=== PATIENT | female | born 1960 | race Caucasian/White ===

== ENCOUNTER 2016-09-11 17:53 | Observation (INO) | payer OTHER ==
[~2016-09-11] VITALS: Ht 165.1 cm; Wt 129.3 kg
--- NOTE | 2016-09-11 19:45 | DIAGNOSTIC IMAGING REPORT ---
PROCEDURE: XR FEMUR - LEFT INDICATION: TRAUMA/INJURY TECHNIQUE: AP and lateral views. COMPARISON: Compare radiographs of the left knee and 03/24/2015. FINDINGS: Mean suggest probable nondisplaced fracture of the intertrochanteric region, left femur. The mid and distal left femur are normal. Moderate degenerative changes of the left knee (partially visualized). IMPRESSION: 1. Findings suggest probable fracture of the intertrochanteric proximal left femur.
--- NOTE | 2016-09-11 19:46 | DIAGNOSTIC IMAGING REPORT ---
PROCEDURE: XR HIP 2VW W W/O AP PELVIS-LT INDICATION: TRAUMA/INJURY TECHNIQUE: AP view of the pelvis and hips with lateral view of the left hip. COMPARISON: None. FINDINGS: LEFT HIP: Findings suggest probable fracture of the intertrochanteric of proximal left femur. There mild degenerate changes of the left hip joint. PELVIS: Osseous pelvis is normal. IMPRESSION: 1. Findings suggest probable fracture of the proximal left femur (intertrochanteric ). 2. Negative pelvis.
--- NOTE | 2016-09-11 19:56 | DIAGNOSTIC IMAGING REPORT ---
PROCEDURE: CT LOWER EXT W/O CONTRAST-LEFT CLINICAL INDICATION: TRAUMA/INJURY TECHNIQUE: Thin-cut noncontrast axial images of the pelvis and left hip with sagittal and coronal reformations. COMPARISON: Comparison made radiographs of the left hip and left femur earlier today (09/11/2016). FINDINGS: There is a comminuted nondisplaced fracture through the greater trochanter of the proximal left femur with fracture lines extending towards the lateral femoral neck. There is a dystrophic calcification or old avulsion fracture of the lesser trochanter. There are mild degenerative changes of bilateral hip joints and sacroiliac joints. There are moderate degenerative changes of the lower lumbar spine. Osseous pelvis is otherwise normal, and there is no evidence of pelvic fracture. IMPRESSION: 1. There is a nondisplaced comminuted fracture of the greater trochanter, left femur, with fracture lines extending toward the femoral neck. While this fracture does not extend to the medial cortex, the patient may be at risk for intertrochanteric extension. 2. Mild degenerative changes of the hip joints and sacroiliac joints. 3. Findings discussed with DOUG Kline. All CT scans at this facility use dose modulation, iterative reconstruction, and/or weight-based dosing when appropriate to reduce radiation dose to as low as reasonably achievable.
--- NOTE | 2016-09-11 20:03 | ED NURSING NOTES ---
Clinical Report - Nurses [facility] [address] [place] [address] 09/11/2016 17:53 Patient: MAXIMILIANO FLOOD TRIAGE Triage time 17:59. Acuity: LEVEL 4. Chief Complaint: Location of symptoms- left hip. 18:11 09/11/16. Alert. No acute distress. SEPSIS SCREEN: Sepsis Screen. Negative (no infection suspected/documented). KYRIE COMA SCORE: [place] Coma Scale: 15- eyes open spontaneously (4); best verbal response- oriented x 4 (5); best motor response- obeys commands (6). --18:11 Nilam Bernardo R.N. 17:58 09/11/16. BP: 147/69. HR: 82. RR: 22. O2 saturation: 99%. Temp: 98.9 F. Pain level now: 04/02. --18:11 Nilam Bernardo R.N. Weight: 136 kg estimated. Height/Length: 64 inches Estimated. BMI: 51.5. --22:00 Josh Botello R.N. Medications Glipizide Oral. --18:05 Nilam Bernardo R.N. Gabapentin Oral. --18:05 Nilam Bernardo R.N. MetFORMIN HCl Oral. --18:09 Nilam Bernardo R.N. Metoprolol Succinate ER Oral. --18:09 Nilam Bernardo R.N. Lovastatin Oral. --18:10 Nilam Bernardo R.N. Allergies Codeine. --19:03 Nilam Bernardo R.N. History Arrived by private vehicle. Historian: patient and family. Accompanied by family. Primary physician (Dr Davies). Injury occurred. This occurred just prior to arrival. Occurred (daughter's wedding venue). Provoking / relieving factors: worsened by movement and standing. Treatment WIRELESS FIELD TECHNICIAN: None. PAST MEDICAL HX: Immunizations: up-to-date. Denies current . SOCIAL HX: Never smoker. No alcohol use or drug use. FALL RISK ASSESSMENT: Fall risk assessment completed. No fall risk identified. NUTRITIONAL RISK ASSESSMENT: The nutritional risk assessment revealed no deficiencies. FUNCTIONAL ASSESSMENT: Functional assessment: no impairments noted. LEARNING NEEDS ASSESSMENT: The learning needs assessment revealed no barriers. SKIN INTEGRITY ASSESSMENT: Skin integrity risk assessment completed. No skin integrity risk identified. --18:11 Nilam Bernardo R.N. PROBLEMS: Diabetes Mellitus. Knee pain. Ankle pain. --18:05 Nilam Bernardo R.N. Hypertension. --18:11 Nilam Bernardo R.N. ADDITIONAL SURGERIES: L ankle surgery. --18:11 Nilam Bernardo R.N. Interventions ID band on patient. To treatment room. --18:11 Nilam Bernardo R.N. PHYSICAL ASSESSMENT 18:12 09/11/16. GENERAL / NEURO / PSYCH: Oriented X 4. Alert. Appears in pain. EXTREMITIES: Left hip: of the anterior and lateral aspect of the hip. SKIN: Skin intact. Skin is warm and dry. --18:12 Nilam Bernardo R.N. NURSING PROGRESS NOTES 18:13 09/11/16. Two patient identifiers checked. Call light placed in reach. Side rails up x 2. Bed placed in lowest position. Brakes of bed on. Patient informed about plan of care. --18:13 Nilam Bernardo R.N. 18:50 09/11/2016 Dilaudid (HYDROmorphone HCl PF) IM 2 mg given. Given in the right anterior lateral thigh. Allergies verified, confirmed 5 rights and sedative warning given to the patient. --18:50 Nilam Bernardo R.N. 18:50 09/11/2016 Phenergan (Promethazine HCl) IM 12.5 mg given. Given in the right anterior lateral thigh. Allergies verified, confirmed 5 rights and sedative warning given to the patient. --18:50 Nilam Bernardo R.N. 18:54 09/11/16. Patient and family informed about reason for wait and about plan of care. --18:54 Nilam Bernardo R.N. 19:00 09/11/16. Care transferred and report given (to [facility]). --19:00 Az, Nilam, R.N. ( Report received from Nilam at 1900.). --19:39 Josh Botello R.N. 20:17 09/11/2016 Dilaudid IV 1 mg (HIGH ALERT MEDICATION, NOW) was refused by patient because pain is gone. Josh Botlelo --20:17 Josh Botello R.N. ( Admitting physician present with patient, patient does not want pain medication at this time. Admitting physician states that if the patient can walk with a walker, she can go home instead of being admitted. Patient does not want the IV placed until she knows for sure if she is staying or going home.). --20:21 Josh Botello R.N. ( Bedside Blood glucose POC = 347). --20:21 Josh Botello R.N. 20:46 09/11/2016 Site #1 started via IV in the left hand with an 20g angiocath, with aseptic technique and good blood return; one attempt. Blood drawn: rainbow set. Labeled in the presence of the patient and sent to the lab. Saline lock flushed with 10 mL saline. --20:46 Camila Buitrago R.N. Two patient identifiers checked. ( report called to SHADI Orosco for admit room 204). --21:52 Josh Botello R.N. DISPOSITION / DISCHARGE Departure time: 21:52. Admitted to Acute Care. Transported via by [facility]. Report was given to a nurse via a phone call. Report included patient's care, treatment, medications, reviewed medication reconcilliation, and condition (including any recent changes or anticipated changes). All questions were answered. Report was acknowledged and care was transferred. Patient's personal items include: shirt, pants, dress, purse and cell phone; items were given to the patient and spouse and transported with the patient. --21:53 Josh Botello R.N. 21:53 09/11/16. BP: 123/56. HR: 82. RR: 20. O2 saturation: 97% on room air. Pain level now: 0/10. --21:53 Josh Botello R.N. Locked/Released at 09/11/2016 22:02 by Josh Botello R.N.
--- NOTE | 2016-09-11 20:03 | ED ORDER SUMMARY ---
..... Patient: MAXIMILIANO FLOOD OrderSheet [facility] VisitID: [id number] [place] [address] 56y, F Registration Date/Time: 09/11/2016 ORDER SHEET Weight: 136.0 kg (estimated) Allergies: Codeine GENERAL ORDERS: Hip 2V Left w AP Pelvis Urgent (18:06 09/11/2016 EKoroleva P.A.-C) (Ack 18:09 KHoerner) (18:51 RMarsden R.N.) Femur Left Urgent (18:06 09/11/2016 EKoroleva P.A.-C) (Ack 18:09 KHoerner) (18:51 RMarsden R.N.) POC Glucose (18:06 09/11/2016 EKoroleva P.A.-C) (18:15 RMarsden R.N.) CT Lower Extremity Without Contrast - Left (HIP) Urgent (19:10 09/11/2016 EKoroleva P.A.-C) (Ack 19:12 [facility] ER Churn Drill Operator) (19:30 MCampbell) MEDICATION ORDERS: Dilaudid IM 2 mg (HIGH ALERT MEDICATION, NOW) (18:05 09/11/2016 EKoroleva P.A.-C) (Ack 18:15 RMarsden R.N.) (18:50 RMarsden R.N.) Phenergan IM 12.5 mg (HIGH ALERT MEDICATION, NOW) (18:05 09/11/2016 EKoroleva P.A.-C) (Ack 18:15 RMarsden R.N.) (18:50 RMarsden R.N.) IV FLUIDS: Dilaudid IV 1 mg (HIGH ALERT MEDICATION, NOW) (20:03 09/11/2016 EKoroleva P.A.-C) (20:17 DDavis R.N.) IV Saline Lock (20:03 09/11/2016 EKoroleva P.A.-C) (Ack 20:17 DDavis R.N.) (21:50 DDavis R.N.) ORDER SHEET NOTES: [Electronically signed by Josh Botello R.N. (22:02 09/11/2016)] [Electronically signed by Clau Soler P.A.-C (22:07 09/11/2016)] [Electronically locked/signed by Josh Botello R.N. (22:09/11/2016)]
--- NOTE | 2016-09-11 20:03 | ED ORDER SUMMARY ---
..... Patient: MAXIMILIANO FLOOD OrderSheet [facility] VisitID: [id number] [place] [address] 56y, F Registration Date/Time: 09/11/2016 ORDER SHEET Weight: 136.0 kg (estimated) Allergies: Codeine GENERAL ORDERS: Hip 2V Left w AP Pelvis Urgent (18:06 09/11/2016 EKoroleva P.A.-C) (Ack 18:09 KHoerner) (18:51 RMarsden R.N.) Femur Left Urgent (18:06 09/11/2016 EKoroleva P.A.-C) (Ack 18:09 KHoerner) (18:51 RMarsden R.N.) POC Glucose (18:06 09/11/2016 EKoroleva P.A.-C) (18:15 RMarsden R.N.) CT Lower Extremity Without Contrast - Left (HIP) Urgent (19:10 09/11/2016 EKoroleva P.A.-C) (Ack 19:12 [facility] ER Marketing Development Representative) (19:30 MCampbell) MEDICATION ORDERS: Dilaudid IM 2 mg (HIGH ALERT MEDICATION, NOW) (18:05 09/11/2016 EKoroleva P.A.-C) (Ack 18:15 RMarsden R.N.) (18:50 RMarsden R.N.) Phenergan IM 12.5 mg (HIGH ALERT MEDICATION, NOW) (18:05 09/11/2016 EKoroleva P.A.-C) (Ack 18:15 RMarsden R.N.) (18:50 RMarsden R.N.) IV FLUIDS: Dilaudid IV 1 mg (HIGH ALERT MEDICATION, NOW) (20:03 09/11/2016 EKoroleva P.A.-C) (20:17 DDavis R.N.) IV Saline Lock (20:03 09/11/2016 EKoroleva P.A.-C) (Ack 20:17 DDavis R.N.) (21:50 DDavis R.N.) ORDER SHEET NOTES: [Electronically signed by Josh Botello R.N. (22:02 09/11/2016)] [Electronically signed by Clau Soler P.A.-C (22:07 09/11/2016)] [Electronically locked/signed by Josh Botello R.N. (22:09/11/2016)]
--- NOTE | 2016-09-11 20:03 | ED CLINICAL REPORT ---
Clinical Report - Physicians/Mid Levels [facility] [address] [place] [address] 09/11/2016 17:53 Patient: MAXIMILIANO FLOOD Time Seen: 18:00 Sep 11 2016. Arrived- By private vehicle. Historian- patient and family. HISTORY OF PRESENT ILLNESS Chief Complaint: L. Hip pain. This started just prior to arrival and is still present. No loss of appetite, weight loss, fatigue or weakness. Denies sleep problem. (Patient sustained a ground-level fall today prior to arrival, after slipping. Sustained injury to the left hip. He has abrasions to the left hip, has had difficulty ambulating since the incident.). REVIEW OF SYSTEMS No sore throat, nasal congestion, abdominal pain, vomiting or black stools. No skin rash or calf pain. All systems otherwise negative, except as recorded above. SOCIAL HISTORY Never smoker. No alcohol use or drug use. ADDITIONAL NOTES The nursing notes have been reviewed. PHYSICAL EXAM Vital Signs: 09/11/2016 17:58 BP: 147/69. HR: 82. RR: 22. O2 saturation: 99%. Temp: 98.9 F. Pain level now: 10/10. Appearance: Alert. ENT: Ears normal. Nose normal. Neck: Normal inspection. CVS: Normal heart rate and rhythm. Heart sounds normal. Respiratory: No respiratory distress. Breath sounds normal. No accessory muscle use or decreased air movement. Abdomen: No visible injury. Soft. Back: Normal inspection. No CVA tenderness. Extremities: Pelvis. No tenderness. No swelling. Left hip: mild tenderness located in the lateral aspect of the hip. No swelling, foreign body or deformity. No limitation in ROM. Left thigh: swelling and mild tenderness located in the lateral aspect of upper thigh. Neurovascular intact distally. No laceration, ecchymosis or foreign body. Left knee. No ecchymosis or foreign body. Neuro: Oriented X 3. LABS, X-RAYS, AND EKG Lt Hip X-ray: (IMPRESSION: 1. Findings suggest probable fracture of the intertrochanteric proximal left femur. Electronically Final signed by:Grupo Lindquist MD 09/11/2016 7:42:57 PM). Note - Tests: (CT: Lower Extremity: IMPRESSION: 1. There is a nondisplaced comminuted fracture of the greater trochanter, left femur, with fracture lines extending toward the femoral neck. While this fracture does not extend to the medial cortex, the patient may be at risk for intertrochanteric extension. 2. Mild degenerative changes of the hip joints and sacroiliac joints. 3. Findings discussed with Miriam Soler, PAC. All CT scans at this facility use dose modulation, iterative reconstruction, and/or weight-based dosing when appropriate to reduce radiation dose to as low as reasonably achievable. Electronically Final signed by:Grupo Lindquist MD 09/11/2016 7:53:34 PM). PROGRESS AND PROCEDURES Course of Care: ( Bedside Blood glucose POC = 347). --20:21 Josh Botello R.N.) X-ray reviewed with Dr. Kang, who recommends eitherconservative treatment, or CT in the ER. We'll obtain CT, as patient does not wish to weight-bear at this time. CT obtained, concern for acute trochanter fracture, extending into the left femoral neck and towards saturation, which may become unstable, as discussed with Dr. Lindquist. This information was also further discussed with Dr. Whipple, on-call for orthopedics. Who states that at this time if patient is unable to bear weight, recommends admission. Recommended admission through medical. Case discussed with Dr. Goyal , here in the ER, and at this time attempted to ambulate the patient, however unable to do so, this patient will be admitted for further placement, however her hip, femur fracture is stable, she is weight bearing if possible, and nonsurgical. Diabetes mellitus, admission orders written by Dr. Rockwell and Dr. Griffin. Patient is stable. Patient/family counseled. CLINICAL IMPRESSION Left Femur Greater Trochanter Fx DM type 2, non insulin dependent, with hyperglycemia Ground Level fall. (Electronically signed by Clau Soler P.A.-C 09/11/2016 22:07)
--- NOTE | 2016-09-11 21:56 | HISTORY AND PHYSICAL ---
ADMITTED: 09/11/2016 CHIEF COMPLAINT: 1. Fall, left hip pain HISTORY OF PRESENT ILLNESS: This is a 56-year-old female who was walking in the rain today and walked into a building, slipped on her wet shoes, fell onto her left hip and presents to the emergency department with complaints of left hip pain. She is otherwise feeling completely well and she did not have any syncope or near syncope, chest pain, headaches that led to this fall. MEDICAL/SURGICAL HISTORY: Past medical history: Type 2 diabetes, dyslipidemia. Past surgical history: Left ankle surgery, T and A. MEDICATIONS: This is by her verbal report. She cannot remember correctly or exactly and she does not know the doses: 1. Glipizide. 2. Gabapentin. 3. Metformin. 4. Metoprolol. 5. Lovastatin. 6. Vitamin D. 7. Fish oil. 8. Aspirin 81 mg. 9. Cinnamon. I have asked her to bring in a correct medication list for her. ALLERGIES: 1. CODEINE. SOCIAL HISTORY: She is . She has a dog and a cat and she does state that she does not need to work. FAMILY HISTORY: Her brother in 2006 from pancreatic cancer and had type 2 diabetes. Her mother had type 2 diabetes, hypertension and cervical cancer, status post hysterectomy. Her father had coronary artery disease and he in 2006 and he had prostate cancer. REVIEW OF SYSTEMS: Full 12-point review of systems was done, was negative except as per HPI. PHYSICAL EXAMINATION: VITAL SIGNS: Blood pressure is 147-153/58-69, pulse is 75-82, respiratory rate is 20-22, O2 saturation 98% on room air. GENERAL: This is a healthy-appearing female lying in bed in no apparent distress. HEENT: Head is atraumatic, normocephalic. Pupils are equal, round, and reactive to light with accommodation bilaterally. Tympanic membranes are nonerythematous without exudates, with cones of light bilaterally. Trachea is midline. NECK: There is no JVD. HEART: S1, S2, regular rate and rhythm. No S3, S4, murmurs, gallops, or rubs. LUNGS: Clear to auscultation bilaterally. ABDOMEN: Soft, nontender, nondistended without hepatosplenomegaly or masses. Bowel sounds are active. EXTREMITIES: There is no peripheral edema. LAB/IMAGING: Left femur x-ray: Shows a probable intratrochanteric left femur fracture. Hip fracture shows the same. CT scan of her left hip shows that there is nondisplaced comminuted fracture of the greater trochanter, left femur with fracture line extending towards the femoral neck. While this fracture does not extend to the medial cortex, the patient may be at risk for intertrochanteric extension. It also shows arthritis of the hip joints and SI joints. IMPRESSION: 1. This is a 56-year-old female with type 2 diabetes, dyslipidemia and obesity, who slipped and fell and broke her left hip this evening. She is unable to ambulate in the emergency department, even with a walker and therefore, does not feel like she is safe to be discharged to home this evening. PLAN: 1. The patient will be admitted to the hospital for operation overnight and further discharge planning for rehabilitation of her left hip. She is currently requiring IV pain medications. 2. Diabetes. We will restart all of her home medications. 3. Dyslipidemia. We will restart all of her medications. 4. Prophylaxis: The patient will be put on chemical deep venous thrombosis prophylaxis given her risk factors including obesity and relative immobility. 5. CODE STATUS: FULL CODE.
--- NOTE | 2016-09-11 22:07 | ED DISCHARGE INSTRUCTIONS ---
Patient: MAXIMILIANO FLOOD General Instructions [facility] VisitID: [id number] [address] [place] [address] 56y, F Registration Date/Time: 09/11/2016 Left Femur Greater Trochanter Fx DM type 2, non insulin dependent, with hyperglycemia Ground Level fall. (Electronically signed by Clau Soler P.A.-C 09/11/2016 22:07)
--- NOTE | 2016-09-11 22:07 | ED MED RECONCILIATION SUMMARY ---
Patient: MAXIMILIANO FLOOD Medication Reconciliation Report [facility] VisitID: [id number] [address] [place] [address] 56y, F Registration Date/Time: 09/11/2016 Weight: 136.0 kg Height/Length: 64 in. BMI: 51.5 ALLERGIES: Codeine The patient's Home Medications are listed below: THE FOLLOWING MEDICATIONS NEED TO BE RECONCILED: Gabapentin Oral Glipizide Oral Lovastatin Oral MetFORMIN HCl Oral Metoprolol Succinate ER Oral The source(s) of the original Home Medication information: Not obtained. The following Medications were given to the patient in the Emergency Department: Dilaudid [IM] IM 2 mg, administered: 09/11/2016 6:50:00 PM Phenergan [IM] IM 12.5 mg, administered: 09/11/2016 6:50:00 PM The following Medications were prescribed to the patient: None.
--- NOTE | 2016-09-11 22:07 | ED MAR SUMMARY ---
..... Medication Administration Record [facility] [address] [place] [address] Patient: MAXIMILIANO FLOOD Visit ID: [id number] 56y, F Weight: 136.0 kg Height/Length: 64 in BMI: 51.5 ALLERGIES: Codeine Given 18:50 09/11/2016 Nilam Bernardo, R.N. Medication Administered: DILAUDID [IM] (HYDROMORPHONE HCL PF), Dose: 2 mg IM. Medication Ordered: Dilaudid IM 2 mg (HIGH ALERT MEDICATION, NOW). Given 18:50 09/11/2016 Nilam Bernardo, R.N. Medication Administered: PHENERGAN [IM] (PROMETHAZINE HCL), Dose: 12.5 mg IM. Medication Ordered: Phenergan IM 12.5 mg (HIGH ALERT MEDICATION, NOW).
--- NOTE | 2016-09-11 22:07 | ED MED RECONCILIATION SUMMARY ---
Patient: MAXIMILIANO FLOOD Medication Reconciliation Report [facility] VisitID: [id number] [address] [place] [address] 56y, F Registration Date/Time: 09/11/2016 Weight: 136.0 kg Height/Length: 64 in. BMI: 51.5 ALLERGIES: Codeine The patient's Home Medications are listed below: THE FOLLOWING MEDICATIONS NEED TO BE RECONCILED: Gabapentin Oral Glipizide Oral Lovastatin Oral MetFORMIN HCl Oral Metoprolol Succinate ER Oral The source(s) of the original Home Medication information: Not obtained. The following Medications were given to the patient in the Emergency Department: Dilaudid [IM] IM 2 mg, administered: 09/11/2016 6:50:00 PM Phenergan [IM] IM 12.5 mg, administered: 09/11/2016 6:50:00 PM The following Medications were prescribed to the patient: None.
--- NOTE | 2016-09-11 22:07 | ED MAR SUMMARY ---
..... Medication Administration Record [facility] [address] [place] [address] Patient: MAXIMILIANO FLOOD Visit ID: [id number] 56y, F Weight: 136.0 kg Height/Length: 64 in BMI: 51.5 ALLERGIES: Codeine Given 18:50 09/11/2016 Nilam Bernardo, R.N. Medication Administered: DILAUDID [IM] (HYDROMORPHONE HCL PF), Dose: 2 mg IM. Medication Ordered: Dilaudid IM 2 mg (HIGH ALERT MEDICATION, NOW). Given 18:50 09/11/2016 Nilam Bernardo, R.N. Medication Administered: PHENERGAN [IM] (PROMETHAZINE HCL), Dose: 12.5 mg IM. Medication Ordered: Phenergan IM 12.5 mg (HIGH ALERT MEDICATION, NOW).
--- NOTE | 2016-09-11 22:07 | ED DISCHARGE INSTRUCTIONS ---
Patient: MAXIMILIANO FLOOD General Instructions [facility] VisitID: [id number] [address] [place] [address] 56y, F Registration Date/Time: 09/11/2016 Left Femur Greater Trochanter Fx DM type 2, non insulin dependent, with hyperglycemia Ground Level fall. (Electronically signed by Clau Soler P.A.-C 09/11/2016 22:07)
[2016-09-11 22:15] VITALS: BP 147/75
[2016-09-12 02:15] VITALS: BP 110/73
[2016-09-12] MEDS ORDERED: GABAPENTIN100 MG PO (03:32)
[2016-09-12] MEDS ORDERED: PIOGLITAZONE HC15 MG PO (03:33)
[2016-09-12] MEDS ORDERED: METFORMIN HCL500 MG PO (03:33)
[2016-09-12] MEDS ORDERED: ATORVASTATIN CA40 MG PO (03:34)
[2016-09-12] MEDS ORDERED: GLIPIZIDE XL5 MG PO (03:35)
[2016-09-12] MEDS ORDERED: PRINIVIL10 MG PO (03:35)
[2016-09-12] MEDS ORDERED: FISH OIL1000 M1 PO (03:36)
[2016-09-12] MEDS ORDERED: BAYER ASPIRIN E81 M1 PO (03:37)
[2016-09-12] MEDS ORDERED: LOPRESSOR25 MG PO (03:37)
[2016-09-12 06:50] VITALS: BP 128/63
--- NOTE | 2016-09-12 07:31 | Progress Note ---
Subjective General Note Date: September 12, 2016 Admission Date: September 11, 2016 Hospital Day: 2 PCP: Laya Rios MD Status: Inpatient Advanced Directive: Full Code Room: 203-B Brief History: The patient is a 56-year-old white female with a significant past medical history of diabetes mellitus who presented to [facility] secondary to complaints of fall with left hip pain. Evaluation at that time was consistent with nondisplaced left hip fracture. Secondary to the above, the patient was admitted by Genoveva Squires M.D. with consultation by Dr. Whipple (orthopedics). For other history present illness, past medical history, family history, social history, review of systems, and admission physical examination please see the patient's history and physical examination and ER visit note in the patient's medical record. Subjective: The patient states she is doing well. Persistent pain but improved. Ambulating with walker. Ready for discharge Patient requests: None Medications and Allergies Medications Current Medications Sig/Marcio Start time Last Medication Dose Route Stop Time Status Admin Enoxaparin Sodium 40 MG QAM 09/12 0900 AC SC Ibuprofen 600 MG Q6H PRN 09/11 2100 AC PO Insulin Human Lispro See Dose ACHS 09/11 2100 AC 09/12 Insts (1) SC 0118 Oxycodone/ See Dose Q4H PRN 09/11 2100 AC 09/12 Acetaminophen Insts (2) PO 0118 Docusate Sodium 250 MG BID PRN 09/11 2044 AC PO Morphine Sulfate 1 MG Q30MIN PRN 09/11 2044 AC IV Naloxone HCl 0.4 MG PRN PRN 09/11 2044 AC IV Ondansetron HCl 4 MG Q6H PRN 09/11 2044 AC PO Ondansetron HCl 4 MG Q6H PRN 09/11 2044 AC IV Zolpidem Tartrate 5 MG QHS PRN 09/11 204 AC PO Dose Instructions: (1)Insulin Human Lispro: LOW DOSE: ACCUCHECK AND SLIDING SCALE >>To change sliding scale DISCONTINUE this order and enter a NEW order. Thanks< (2)Oxycodone/Acetaminophen: 1 - 2 TABLETS Allergies Coded Allergies: Codeine (09/11/16) Physical Exam Vital Signs / I&Os Vital Signs Date Time Temp Pulse Resp B/P Pulse O2 O2 Flow FiO2 Ox Delivery Rate 09/12 0650 97.7 70 18 128/63 100 09/12 0215 98.6 71 18 110/73 99 Room Air 09/11 2215 98.8 80 20 147/75 100 Room Air I&O 09/12 0000 09/11 1600 09/11 0800 Intake Total Output Total Balance General Appearance Alert, Oriented X3, Cooperative, No acute distress Lungs Clear to auscultation, Normal air movement Cardiovascular Regular rate and rhythm, Normal S1 and S2 Abdomen Normal bowel sounds, Soft, No tenderness Extremities No cyanosis, No clubbing Neurological Cranial nerves intact, No lateralizing signs Psych/Mental Status Mental status normal, Mood normal Imaging CT Scan Hip IMPRESSION: 1. There is a nondisplaced comminuted fracture of the greater trochanter, left femur, with fracture lines extending toward the femoral neck. While this fracture does not extend to the medial cortex, the patient may be at risk for intertrochanteric extension. 2. Mild degenerative changes of the hip joints and sacroiliac joints. 3. Findings discussed with DOUG Kline. Dictated by: GARLAND SKAGGS MD D: VICTORIA;09/11/161955 Assessment and Plan Problem List 1. Hip fracture, left Plan -stable -Discharge per orthopedics recommendations -Outpatient follow-up with orthopedic per Dr. Avalos recommendations 2. Diabetes mellitus Status Chronic Onset Date Unknown Plan -stable -Discharge today -Continue outpatient medical regimen -Follow up with PCP next week 3. Hyperlipidemia Status Chronic Onset Date Unknown Plan -stable -Continue outpatient medical regimen -Follow up with PCP next week 4. Hypertension Status Chronic Onset Date Unknown Plan -well-controlled -Low salt diet -Continue present therapy -Outpatient follow-up with PCP next week Current status: Good, stable Anticipated discharge date: Today Anticipated discharge placement: Home Patient care time: Time spent in chart review, patient interview, physical exam, CPOE, and care documentation: greater than 30 minutes Visit to patient today: 2 Complexity of care: Moderate E&M Codes Discharge: Inpt >30 min spent/[id number]
--- NOTE | 2016-09-12 09:05 | CONSULTATION REPORT ---
DATE OF CONSULTATION: 09/12/2016 HISTORY OF PRESENT ILLNESS: The patient is a 56-year-old woman who fell on the day of admission, 09/11/2016, sustaining an injury to her left hip. She was seen in the emergency department at [facility] where x-rays showed a nondisplaced fracture of the greater trochanter. She had a CT scan which showed a nondisplaced greater trochanteric fracture that did not enter the femoral neck and was limited to the greater trochanter. She has not had any recent fractures. She had an ankle fracture as a teenager. She had no other bodily parts injured. MEDICAL/SURGICAL HISTORY: Positive for type 2 diabetes, hyperlipidemia, previous ankle surgery, T&A. MEDICATIONS: Include: 1. Glipizide. 2. Gabapentin. 3. Metformin. 4. Metoprolol. 5. Lovastatin. 6. Vitamin D. 7. Fish oil. 8. Aspirin 9. Cinnamon. ALLERGIES: 1. SHE IS ALLERGIC TO CODEINE. REVIEW OF SYSTEMS: Essentially negative. PHYSICAL EXAMINATION: EXTREMITIES: She has tenderness over her greater trochanter, but does have active function isometrically. She does not have any ecchymosis. She has normal sensation and pulses distally. IMPRESSION: 1. Nondisplaced left greater trochanteric fracture PLAN: At this point, I think she could be full weightbearing if she were comfortable enough to do that. She has been admitted for supportive care until she is able to weightbear comfortably. She does not need any orthopedic intervention at this time, other than physical therapy to aid in transfers and full weightbearing with a walker.
--- NOTE | 2016-09-12 13:10 | Discharge Summary ---
Discharge Summary Report Admit Date 09/11/16 Discharge Date 09/12/16 Admission Diagnosis 1. Greater trochanteric fracture-left hip Discharge Diagnosis 1. Greater trochanteric fracture-left hip Brief History The patient is a 56-year-old white female with a significant past medical history of diabetes mellitus who presented to [facility] secondary to complaints of fall with left hip pain. Evaluation at that time was consistent with nondisplaced left hip fracture. Secondary to the above, the patient was admitted by Genoveva Squires M.D. with consultation by Dr. Whipple (orthopedics). For other history present illness, past medical history, family history, social history, review of systems, and admission physical examination please see the patient's history and physical examination and ER visit note in the patient's medical record. Hospital Course The following problems and their management were noted during the patient's hospitalization: 1. Greater trochanteric fracture-left hip The patient presented with findings of fracture of greater trochanter left hip without extension into the femoral neck. The patient was evaluated by orthopedics (Dr. Whipple) who felt the patient did not require surgical intervention and could weight-bear as tolerated. Is was his recommendation that the patient be discharged home following PT evaluation. The patient will follow -up with Dr. Whipple in one week for repeat x-rays. No strenuous activity until seen by Dr. Whipple. General Appearance Alert, Oriented X3, Cooperative, No acute distress Lungs Clear to auscultation, Normal air movement Cardiovascular Regular Rate, Normal S1, Normal S2 Abdomen Normal bowel sounds, Soft, No tenderness Neurological Normal Psych/Mental Status Mental status NL, Mood NL Discharge Instructions/Meds For other recommendations regarding discharge diet, activity, followup, and discharge medications please see the patient's discharge instructions. Discharge condition: Fair, improved Greater than 30 min. was spent in the patient's discharge preparation including discharge interview and physical examination, progress note, discharge instructions, and discharge summary The patient was interviewed and examined on the day of discharge. E&M Codes Discharge: Inpt >30 min spent/[id number]
[2016-09-12 14:22] VITALS: BP 140/75
[2016-09-12] MEDS ORDERED: DOCUSATE SODIU250 MG PO (16:21)
[2016-09-12] MEDS ORDERED: OXYCODONE/ACETA1 TA1 PO (16:21)
--- NOTE | 2016-09-12 16:24 | Provider's Discharge Care Plan ---
Problem, Goal, Plan Problem List 1. Hip fracture, left Goals: Improve disease control, Prevent disease progress Instructions: Follow up as directed, Take meds as directed, Follow up in one week with orthopedics for reevaluation
== END 2016-09-12 18:14 | disposition home or self-care (01) ==
LOC: ED SRH 17:53 → TRANS SRH 20:42 → ACUTE2 SRH 21:58 → TRANS SRH 22:00 → ACUTE2 SRH 22:00
PROVIDERS: ADMIT Family Medicine
DX: S72.115A Nondisplaced fracture of greater trochanter of left femur, initial encounter for closed fracture (principal); W01.0XXA Fall on same level from slipping, tripping and stumbling without subsequent striking against object, initial encounter; Y92.89 Other specified places as the place of occurrence of the external cause; Y99.8 Other external cause status; E11.65 Type 2 diabetes mellitus with hyperglycemia; Z79.84 Long term (current) use of oral hypoglycemic drugs